=== PATIENT | female | born 1950 | race Caucasian/White ===

== ENCOUNTER 2018-08-16 16:00 | Emergency (ER) | payer MEDICARE, OTHER, SELFPAY ==
[~2018-08-16] VITALS: Ht 167.6 cm; Wt 113.8 kg
[2018-08-16 16:38] LABS: BASOPHILS # (AUTO) 0.08 x10^3/uL (0-0.1); BASOPHILS % (AUTO) 1 % (0-1); EOSINOPHILS # (AUTO) 0.13 x10^3/uL (0-0.4); EOSINOPHILS % (AUTO) 1 % (1-7); LYMPHOCYTES # (AUTO) 1.54 x10^3/uL (1-3.4); LYMPHOCYTES % (AUTO) 16 % (22-44); MD NO; MEAN CORPUSCULAR HEMOGLOBIN 31.6 pg (27.0-34.8); MEAN CORPUSCULAR HGB CONC 33.7 g/dL (32.4-35.8); MEAN CORPUSCULAR VOLUME 93.8 fL (80-100); MEAN PLATELET VOLUME 8.7 fL (7.4-10.4); MONOCYTES % (AUTO) 10 % (2-9); NEUTROPHILS % (AUTO) 72 % (42-75); PLATELET COUNT 312 x10^3/uL (130-400); RED BLOOD COUNT 4.68 x10^6/uL (3.82-5.3); RED CELL DISTRIBUTION WIDTH 15.1 % (9.6-15.2)
[2018-08-16] MEDS ORDERED: ADENOSINE 6 MG/2 ML ONE (16:41)
[2018-08-16 16:47] LABS: ALANINE AMINOTRANSFERASE 63 U/L (12-78); ANION GAP 10 mmol/L (5-15); CALCIUM 9.1 mg/dL (8.5-10.1); CHLORIDE 106 mmol/L (98-107); CREATININE 1.13 mg/dL (0.55-1.02)
[2018-08-16 16:51] LABS: ALKALINE PHOSPHATASE 153 U/L (45-117); BILIRUBIN,TOTAL 0.6 mg/dL (0.2-1.0); TOTAL PROTEIN 8.5 g/dL (6.4-8.2); TROPONIN I < 0.015 ng/mL (0.000-0.045)
[2018-08-16] MEDS ORDERED: ADENOSINE 6 MG/2 ML IVPush ONE (17:00)
[2018-08-16 17:12] LABS: FREE T4 (FREE THYROXINE) 1.48 ng/dL (0.76-1.46)
[2018-08-16] MEDS ORDERED: [UNRECOGNIZED DRUG - CODE] PO (17:49)
[2018-08-16] MEDS ORDERED: FURO-93 PO (17:49)
[2018-08-16] MEDS ORDERED: OMEP-110 PO (17:49)
[2018-08-16] MEDS ORDERED: AMLO10TA6 PO (17:49)
[2018-08-16] MEDS ORDERED: NAPR-685 PO (17:49)
[2018-08-16] MEDS ORDERED: LISI-170 PO (17:49)
[2018-08-16 18:31] VITALS: BP 134/87
== END 2018-08-16 19:07 | disposition home or self-care (01) ==
LOC: ED 18:50
DX: I47.1 Supraventricular tachycardia (principal); K21.9 Gastro-esophageal reflux disease without esophagitis; E78.00 Pure hypercholesterolemia, unspecified
CPT/HCPCS: 36415; 71045; 80053; 83735; 84439; 84443; 84484; 85025; 93005; 99285; J0153

== ENCOUNTER → 2020-06-07 | Outpatient (CLI) | payer MEDICARE ==
[~2020-06-07] MED LIST: AMLO10TA8 PO; FURO-93 PO; LISI-170 PO; NAPR-685 PO; OMEP-110 PO; [UNRECOGNIZED DRUG - CODE] PO
== END | disposition home or self-care (01) ==
LOC: CVU 09:24
PROVIDERS: ATTEND Internal Medicine Cardiovascular Disease
DX: I08.0 Rheumatic disorders of both mitral and aortic valves (principal); I10 Essential (primary) hypertension; I48.91 Unspecified atrial fibrillation; E78.5 Hyperlipidemia, unspecified
CPT/HCPCS: 93306